=== PATIENT | female | born 1995 | race Caucasian/White ===

== ENCOUNTER 2018-11-11 18:30 | Outpatient (CLI) | payer BC, OTHER, SELFPAY ==
[2018-11-11 18:19] VITALS: BMI 33.8
[2018-11-11 19:31] VITALS: BMI 34.0
--- NOTE | 2018-11-13 07:22 | OB.TRI.NOTE ---
History of Present Illness Date of Service: 11/11/18 Was patient seen by the physician?: No Reason For Visit: INCREASED BLOOD PRESSURE Date of Service: 11/11/18 Final HENRIQUE: 02/18/19 Gestational age: 26 Weeks and 1 Days Allergies doxycycline Allergy (Verified 11/11/18 20:45) Swelling Sulfa (Sulfonamide Antibiotics) Allergy (Verified 11/11/18 20:45) Swelling Tetracyclines Allergy (Verified 11/11/18 20:45) Hives NST - FHR Rate Baby A Baseline: 145 Variability:: Moderate Accelerations:: 10 x 10 Decelerations:: None NST Reactive:: Yes, Appropriate for gestational age FHR Category:: Category I Uterine Activity:: no ctx Impression/Plan 23yo @ 25.6 wks- was sent to ER for calf pain to r/o DVT, elevated BP 1) BPs normal on L&D unit 2) dc patient to ER for DVT work up
== END 2018-11-11 20:33 | disposition home or self-care (01) ==
LOC: WPOUT 19:13 → WP 19:14
PROVIDERS: Referring Provider Obstetrics & Gynecology; Visit Provider Obstetrics & Gynecology
DX: O26.892 Other specified pregnancy related conditions, second trimester (principal); R03.0 Elevated blood-pressure reading, without diagnosis of hypertension; M79.669 Pain in unspecified lower leg; Z3A.25 25 weeks gestation of pregnancy
CPT/HCPCS: 59025; 59050; 99218; G0378

== ENCOUNTER 2018-11-11 20:44 | Emergency (ER) | payer BC, OTHER, SELFPAY ==
[2018-11-11 19:31] VITALS: BMI 34.0
[2018-11-11 20:45] VITALS: BP 131/71; PULSE 95; RESP 16; TEMP 36.3; O2SAT 96; BMI 33.5
--- NOTE | 2018-11-11 21:08 | US_ITS ---
STUDY: VENOUS DOPPLER ULTRASOUND - LEFT LOWER EXTREMITY REASON FOR EXAM: Female, 23 years old. Left leg pain TECHNIQUE: Ultrasound evaluation of the deep vein system to include cason-scale imaging and compression was performed. Cason-scale imaging and Doppler sonographic evaluation, including duplex spectral analysis and qualitative color flow sonography, was performed. COMPARISON: None. FINDINGS: No deep venous thrombosis is identified. All visualized veins demonstrate normal compressibility, augmentation and/or color flow. US/Venous Duplex Imag/Limited/Uni IMPRESSION: No DVT is identified. Electronically Signed: Delroy Ho MD at 21:49 EDT Tel , Service support ,
--- NOTE | 2018-11-11 21:45 | ED.DCSUM_ITS ---
- ER Visit Summary Date of Service: 11/11/18 Chief Complaint: Left leg pain History of Present Illness: The patient is a [address] Fuentes. She is a G1, P0 at 26 weeks of . She reports that she has a history of factor V Leiden disorder. States that last night she had a leg cramp while she was sleeping. The pain has not resolved. She describes as an aching pain that is 2 out of 10 [address] she [address]. She is pain-free at rest. She denies any paresthesias. No recent injury. No fall, MVA, or change in activity. Patient denies any vaginal bleeding or discharge. She has normal movement. She denies any chest pain or shortness of breath. Her review of systems is negative. Physical Examination: Vitals: Stable. Afebrile. General: Well-nourished and well-developed. Head: Normocephalic atraumatic. Neck: Supple, no lymphadenopathy. No JVD. Nontender. Cardiovascular: Regular rate and rhythm. No murmurs. Respiratory: No respiratory distress. Clear to auscultation bilaterally. Abdominal: Soft, nontender, nondistended, normal bowel sounds. No guarding, rebound, or peritoneal signs. Gravid uterus. Back: Nontender. Extremities: Mild left calf tenderness to palpation, no edema. 2+ dorsalis pedis pulse bilaterally. Skin: Normal color, no rash. Neurologic: Alert and oriented ?3. Cranial nerves II through XII are intact. Normal strength and sensation. Psych: Normal affect. Test Results: Left lower extremity Doppler was negative. heart tones 144. Emergency Department Course and Treatment: Patient refused pain medications. She is resting comfortably. Treatment Plan: Patient will be discharged instructions to push fluids. Use Tylenol for pain. Follow-up Dr. Fuentes as previously scheduled. Return to the emergency department for any worsening symptoms. Disposition: To home in improved and stable condition. Impression: 1. Left calf pain. 2. Third trimester . This note was generated with [employer] software. It may contain incorrect words, spelling, and punctuation that were not noted in review of the chart prior to signing ED Disposition - Plan for ED Patient: Disposition: Home or Assisted Living Instructions: Muscle Spasm Referrals: Princess Irving MD [STAFF PHYSICIAN] - Keep Tip appointment
[2018-11-11 21:58] VITALS: BP 128/60; PULSE 78; RESP 18; O2SAT 96
== END 2018-11-11 21:58 | disposition home or self-care (01) ==
PROVIDERS: Emergency Provider Emergency Medicine
DX: O26.892 Other specified pregnancy related conditions, second trimester (principal); M79.662 Pain in left lower leg; O99.112 Other diseases of the blood and blood-forming organs and certain disorders involving the immune mechanism complicating pregnancy, second trimester; D68.51 Activated protein C resistance; O99.282 Endocrine, nutritional and metabolic diseases complicating pregnancy, second trimester; E03.9 Hypothyroidism, unspecified; Z3A.26 26 weeks gestation of pregnancy; Z79.899 Other long term (current) drug therapy
CPT/HCPCS: 93971; 99282

== ENCOUNTER 2019-02-25 06:55 | Inpatient (IN) | payer BC, OTHER, SELFPAY ==
[2019-02-25 07:25] VITALS: BMI 39.1
[2019-02-25] MEDS: Lactated Ringers 1,000 ML 50 ML IV (07:40)
[2019-02-25 08:03] LABS: Absolute Lymphocyte Count 1.81 X10^3/uL (0.83-4.51); Absolute Neutrophil Count 6.8 X10^3/uL (2.0-7.7); Basophil# 0.01 X10^3/uL; Basophil% 0.1 % (0-1); Eosinophil# 0.14 X10^3/uL; Eosinophils% 1.5 % (0-5); Hematocrit 33.3 % (37-47); Hemoglobin 10.7 g/dL (12.0-15.0); Lymphocyte # 1.81 X10^3/ul (4.0); Lymphocyte % 19.3 % (19-41); Mean Corp Hgb Conc 32.1 g/dL (32-36); Mean Corpuscular Hgb 26.6 pg (27.0-32.0); Mean Corpuscular Volume 82.6 fL (81-99); Mean Platelet Vol. 11.7 fl (6.2-12.0); Monocyte# 0.59 X10^3/uL; Monocyte% 6.3 % (0-10); NRBC Flagged by Analyzer 0 % (0-5); Neutrophil # 6.78 X10^3/uL (2.7-7.7); Neutrophil % 72.4 % (47-70); Platelet Count 144 K/mm3 (150-450); RBC Distribution Width CV 13.6 % (11.6-14.6); RBC Distribution Width SD 40.4 fl (35.1-43.9); Red Blood Count 4.03 M/mm3 (4.2-5.4); White Blood Count 9.4 K/mm3 (4.4-11.0)
--- NOTE | 2019-02-25 08:25 | HP.PCM_ITS ---
History Date of Admission: 02/25/19 Final HENRIQUE: 02/18/19 Final HENRIQUE Source: US <20 weeks Gestational age: 41 Weeks and 0 Days History of this : This is a 23 year-old, , at 41 weeks gestational age. Patient here for induction of labor due to post EDC. Patient reports occasional mild contractions. Denies any vaginal bleeding, leaking fluid. Allergies doxycycline Allergy (Verified 11/11/18 20:45) Swelling minocycline Allergy (Verified 02/25/19 07:29) Upset Stomach Sulfa (Sulfonamide Antibiotics) Allergy (Verified 11/11/18 20:45) Swelling sulfamethoxazole [From Bactrim] Allergy (Verified 02/25/19 07:26) Hives Tetracyclines Allergy (Verified 11/11/18 20:45) Hives trimethoprim [From Bactrim] Allergy (Verified 02/25/19 07:26) Hives Home Medications: Home Medications Levothyroxine [Synthroid] 50 mcg PO DAILY 11/11/18 Vits [Prenatabs FA] 1 tab PO DAILY 11/11/18 Biotin 2,500 mcg PO DAILY 02/25/19 Fluticasone 0.05% [Flonase Nasal [place]] 50 mcg NASAL PRN PRN 02/25/19 Loratadine [Claritin] 10 mg PO DAILY PRN 02/25/19 Ondansetron HCl [Zofran] 4 mg PO PRN PRN 02/25/19 Vitamin D3 25 mcg PO DAILY 02/25/19 Smoking Status: Never smoker Alcohol: None Number of Fetus(es): 1 NST - FHR Rate Baby A Baseline: 150 Variability:: Moderate Accelerations:: 15 x 15 Decelerations:: None NST Reactive:: Yes FHR Category:: Category I Uterine Activity:: irregular History Past Pregnancies: Past Pregnancies Delivery Date Name GA/ Weeks Outcome Route Wt Sex Labor Length Anesthesia Delivery Location Provider FOB Labs: O+, HEPB NEG, RUB imm, GBS NEG, syphilis neg Expected Infant Delivery Method: Spontaneous Vaginal Physical Exam General: Alert, Oriented x3 Abdomen: Soft, Non Tender, Gravid Neurological: Cranial nerves II-XII grossly intact [employer]: Normal external genitalia Estimated gestational size: Appropriate for gestational size Presentation: Cephalic Cervix Dilation (cm): 4 Station: -3 Effacement (%): 60 Assessment/Plan This is a 23 year-old, , at 41 weeks gestational age here for IOL 1) admit to L&D 2) Monitor FHR/TOCO 3) pitocin 4) epidural if requested for pain mgmt 5) anticipate
[2019-02-25] MEDS: Oxytocin 30 units/NS 500 ml 30 UNITS/500 ML IV.SOLN IV (08:32)
--- NOTE | 2019-02-25 11:46 | PCM.PN.BLA ---
Progress Note Pt seen at bedside, doing well. AROM performed- large amount of clear fluid. IUPC placed. Continue Pitocin. pt rating contractions as very mild.
[2019-02-25] MEDS: Amnioinfusion- 0.9% NS 1,000 ML IV.SOLN. INTRA-UTER (12:47)
[2019-02-25] MEDS: Lactated Ringers 500 ML 999 ML IV (12:59)
[2019-02-25] MEDS: fentaNYL-bupivacaine (epidural) 100 ML BAG EPIDURAL ×3 (14:10→22:48)
--- NOTE | 2019-02-25 17:03 | PCM.PN.BLA ---
Progress Note pt seen at bedside, resting comfortably with epidural in place. VE: 5-6/70/-2. Continue pitocin at this time. FHR reviewed.
[2019-02-25] MEDS: Lactated Ringers 1,000 ML 200 ML IV ×2 (17:13→20:41)
[2019-02-25] MEDS: 0.9% Normal Saline 1,000 ML 100 ML IV (20:09)
[2019-02-25] MEDS: Fluticasone 0.05% 1 SPRAY NASAL.SRY NASAL (21:56)
[2019-02-26] VITALS (26 sets, daily range): BP systolic 118–145; BP diastolic 46–83; PULSE 92–117; RESP 16–20; TEMP 36.2–37.8; O2SAT 96–100
[2019-02-26] MEDS: Lactated Ringers 1,000 ML 200 ML IV (01:23)
[2019-02-26] MEDS: fentaNYL-bupivacaine (epidural) 100 ML BAG EPIDURAL (03:22)
[2019-02-26] MEDS: 0.9% Normal Saline 1,000 ML 100 ML IV (04:58)
[2019-02-26] MEDS: Sodium Citrate/Citric Acid 30 ML UDC PO (05:30)
--- NOTE | 2019-02-26 05:44 | PCM.PN.BLA ---
Progress Note Patient seen at bedside vaginal exam performed approximately 8 cm swelling on the cervix and head with caput appreciated. Head not well applied- caput at +1 but able to disengage head with minimal effort. Patient with arrest of labor. Patient has been 7 to 8 cm since for approximately 10 hours. Initially thought her exam was changed to Anterior lip but RN rechecked and states was not AL and was back to 8cm. findinns were discussed with the patient and her family of primary section. I discussed risks/benefits of primary cs for arrest of labor- including but not limited to bleeding, infection, injury to pelvic structures. pt wishes to proceed.
[2019-02-26] MEDS: Cefazolin 2 GM in 0.9% Normal Saline 100 ML IV (05:47)
--- NOTE | 2019-02-26 06:45 | OP.PCM_ITS ---
Delivery Classification: GERRY Final HENRIQUE: 02/18/19 Gestational age: 41 Weeks and 1 Days manufacturing advisor: Sarah Ye Type of Anesthesia:: Epidural Implants Used: none Date of Procedure: 02/26/19 Pre-Operative Diagnosis: Term gestation, Arrest of dilation Post-Operative Diagnosis: same, live male Indications: Arrest of dilation Indications for : Failure to Progress Description of Procedure: After informed consent was obtained the patient was taken the operating room. She was then placed in the supine position. She was prepped and draped in the normal sterile fashion. Epidural Anesthesia was found to be adequate. At this time a Pfannenstiel skin incision was made with a knife was carried down to the underlying layer of the fascia. The fascial incision was then extended laterally using curved Chao scissor. Attention was then turned to the superior aspect of the fascial edge was grasped with 2 straight Norma clamps tented up and the rectus muscle dissected off sharply using curved Chao scissor. Attention was then turned to the inferior aspect where again Prescott clamps were placed in the rectus muscles were tented up and the fascia was dissected off sharply using the curved Chao scissor. rRectus muscles were then grasped with allis clamps and scalpel used to in the midline and peritoneum was entered bluntly. Gentle opposing traction was placed. At this time the vesicouterine peritoneum was identified. Scalpel was used to make a uterine incision in a low transverse fashion. The uterus was then entered bluntly gentle opposing traction was placed to extend this incision. Membranes were ruptured clear. 's head was brought to the uterine incision was delivered atraumatically. Cord was clamped and cut was handed to the waiting nursery team. The Placenta was removed from the uterus. The uterus was then removed from the abdominal cavity. The uterus was cleared of all clots and debris using a lap. At this time the uterine incision was reapproximated using #1 Vicryl in a running locked fashion followed by a second imbricating layer. Hemostasis was appreciated. Posterior cul-de-sac was then cleared of all clots and debris. tubes and ovaries appeared normal. Uterus was placed back in the abdominal cavity. Gutters were cleared of all clots and debris. Uterine incision was reevaluated and noted to be of excellent hemostasis. Alesia placed. At this time the peritoneum and muscle were grasped with Kellys reapproximated using #2 Vicryl suture in a running fashion. Alesia placed over muscle. Fascia was then reapproximated using #1 Vicryl in a running fashion. Alesia placed in subcu later. Subcu layer was reapproximated with #2 0 plain gut suture in an interrupted fashion. Subcu layer was closed using 4-0 vicryl on a John needle in a subcu fashion. Dry sterile dressing was applied. Instrument lap needle count correct ?2. Anticipated normal postoperative course. Amniotic Membrane Rupture Type: Artificial Amniotic Fluid Description: Clear Placenta Disposition: [facility] Drain: Velazquez to straight drain Fluids Replaced: 1500 Cord Entanglement: - - a Cord Vessel Description: 3 Vessels Esitmated Blood Loss (ml): 800 Infant Gender: Male (1 minute): 8 (5 minute): 9 Delayed cord clamping: Yes Antibiotic Given: Ancef 2 grams IV x1, Zithromax 500 mg/5 mL X1 Pt instructed on risks of surgery: Bleeding, Anesthesia Risks, Infection, Injury to surrounding structure(s) including bowel and bladder Complications: None - Admit VTE Documentation VTE Present on Admission: Yes VTE Mechan Device Prophylaxis: SCD's VTE Pharm Prophylaxis ordered?: Yes
[2019-02-26] MEDS: Lactated Ringers 1,000 ML 100 ML IV (07:00)
[2019-02-26] MEDS: Oxytocin 30 units/NS 500 ml 30 UNITS/500 ML IV.SOLN 167 UNITS IV (07:25)
--- NOTE | 2019-02-26 08:02 | NURSING ---
01/22/2028 is the use by date on the second matthew. viki bagley aware of this nursing note.
--- NOTE | 2019-02-26 08:31 | NURSING ---
Uterus right of midline and somewhat boggy. Fundal massage and pad changed for moderate lochia. pad saved for quantitative measure and charge nurse Patt informed. Hemorrhage cart requested to room.
[2019-02-26] MEDS: Levothyroxine 50 MCG Tablet PO (08:53)
--- NOTE | 2019-02-26 11:03 | NURSING ---
Hemorrhage cart in room at 0839. Pad wts as follows: 160gm at 08:40, 108gm at 09:45 19gm at 1030. Uterus has remained firm after initial massage. No further interventions needed at this time.
[2019-02-26] MEDS: Ketorolac 30 MG/ML Syringe IV ×3 (11:59→23:56)
[2019-02-26] MEDS: 0.9% Saline Lock 10 ML Syringe IV ×3 (12:01→23:57)
--- NOTE | 2019-02-26 13:39 | PCM.PN.BLA ---
Progress Note RN reports abdominal distension and firmness over right side of abdomen. At bedside to check pt. She feels well. Pain is well controlled. She denies lightheadedness, dizziness, nausea, vomiting. Gen- NAD, well appearing Abd- Soft, +soft distension, FF@U, ATTP Incision- Dressing c/d/i - Abd exam benign at this time - Pt doing well - Continue to monitor STROKE Vital Signs/Narrative: Vital Signs Temp Pulse Resp BP BP Pulse Ox 02/26/19 12:35 18 96 02/26/19 11:53 98.0 F 114 H 18 133/76 H 97 02/26/19 11:30 18 96 02/26/19 10:40 108 H 18 123/61 H 96 02/26/19 10:30 18 97 02/26/19 09:41 16 130/71 H 97
[2019-02-26] MEDS: Acetaminophen 500 MG Tablet 1000 MG PO (17:04)
--- NOTE | 2019-02-26 17:10 | NURSING ---
Temporal temperature 100.4 F with oral retake at 99.6 F. Pt given tylenol to help with pain and increased temperature.
--- NOTE | 2019-02-26 20:34 | NURSING ---
Pt. up to restroom to try and urinate for first time since kraft was discontinued. A moderate sized clot, approx the size of a hard boiled egg noted in pt's mike-care.
[2019-02-27 00:03] VITALS: BP 137/53; PULSE 109; RESP 18; TEMP 37.2; O2SAT 97
[2019-02-27 02:34] VITALS: PULSE 113; RESP 16; O2SAT 97
[2019-02-27 04:20] VITALS: BP 101/51; PULSE 101; RESP 16; TEMP 37.2; O2SAT 100
[2019-02-27] MEDS: Ketorolac 30 MG/ML Syringe IV ×2 (06:13→11:54)
[2019-02-27] MEDS: 0.9% Saline Lock 10 ML Syringe IV ×2 (06:13→11:53)
[2019-02-27] MEDS: Levothyroxine 50 MCG Tablet PO (06:13)
[2019-02-27 06:17] VITALS: PULSE 116; RESP 16; O2SAT 97
[2019-02-27 06:27] LABS: Hematocrit 24.7 % (37-47); Mean Corp Hgb Conc 32.4 g/dL (32-36); Mean Corpuscular Hgb 26.8 pg (27.0-32.0); Mean Corpuscular Volume 82.6 fL (81-99); Platelet Count 127 K/mm3 (150-450); RBC Distribution Width CV 14.1 % (11.6-14.6); RBC Distribution Width SD 41.7 fl (35.1-43.9); Red Blood Count 2.99 M/mm3 (4.2-5.4); White Blood Count 12.8 K/mm3 (4.4-11.0)
--- NOTE | 2019-02-27 10:02 | PCM.PN.OB ---
Subjective: Doing well. She is up out of bed and ambulating without any lightheadedness or dizziness. She denies chest pain, shortness of breath, palpitations, leg pain. She is ambulating and voiding without difficulty. She is tolerating a diet without nausea or vomiting. She is breast-feeding. Lochia is normal. Pain is well controlled. - Physical Exam Vitals/I&O's: Vital Signs Temp Pulse Resp BP Pulse Ox 99.0 F 116 H 16 101/51 L 97 02/27/19 04:20 02/27/19 06:17 02/27/19 06:17 02/27/19 04:20 02/27/19 06:17 Oxygen Delivery Method Room Air Weight: 242 lb 8.136 oz Body Mass Index (BMI) 39.1 Intake and Output for Last 24 Hours 02/25/19 02/26/19 02/27/19 23:59 23:59 23:59 Intake Total 6477.57 / 6477.57 5536.38 / 5536.38 Output Total 4200 / 4200 4850 / 4850 1100 / 1100 Balance 2277.57 / 2277.57 686.38 / 686.38 -1100 / -1100 General: Alert, No apparent distress HEENT: Atraumatic Abdomen: Soft, - - ATTP, FF@U, dressing c/d/i Extremities: No Calf Tenderness, Edema Skin: No rashes Neurological: Neuro grossly intact Psych/Mental Status: Normal Affect, Appropriate Laboratory Results 02/27/19 06:12: WBC 12.8 H, RBC 2.99 L, Hgb 8.0 L, Hct 24.7 L, MCV 82.6, MCH 26.8 L, MCHC 32.4, RDW Std Deviation 41.7, RDW Coeff of Barbara 14.1, Plt Count 127 L, MPV 11.0 Current Medications Acetaminophen (Tylenol) 1,000 mg PO Q8H PRN PRN Reason: Pain Score 1-3/10 Last Admin: 02/26/19 17:04 Dose: 1,000 mg Documented by: Bisacodyl (Dulcolax) 10 mg RECTAL UD PRN PRN Reason: If no BM Fluticasone Propionate (Flonase Nasal [place]) 1 spray NASAL PRN PRN PRN Reason: NASAL CONGESTION Hydrocortisone (Hytone) 1 applic TOPICAL TID PRN PRN; Protocol PRN Reason: Discomfort Lactated Ringer's () 1,000 mls @ 100 mls/hr IV .Q10H [facility] Last Admin: 02/27/19 04:12 Dose: Not Given Documented by: Naloxone HCl 4 mg/ Dextrose 504 mls @ 0 mls/hr IV .Q0M PRN; Protocol PRN Reason: Respiratory depression Naloxone HCl 4 mg/ Dextrose 504 mls @ 0 mls/hr IV .Q0M PRN; Protocol PRN Reason: To maintain Resp. rate >10 Ibuprofen (Motrin) 600 mg PO Q6H PRN PRN PRN Reason: Pain Score 1-3/10 Ketorolac Tromethamine (Toradol) 30 mg IV Q6 [facility] Stop: 02/28/19 06:01 Last Admin: 02/27/19 06:13 Dose: 30 mg Documented by: Levothyroxine Sodium (Synthroid) 50 mcg PO DAILY@0600 [facility] Last Admin: 02/27/19 06:13 Dose: 50 mcg Documented by: Loratadine (Claritin) 10 mg PO DAILY PRN PRN Reason: ALLERGIES Methylergonovine Maleate (Methergine) 0.2 mg IM X1 PRN PRN Reason: Uterine Atony Naloxone HCl (Narcan) 0.02 mg IV Q1M PRN PRN Reason: RR <10 and pt unresponsive Ondansetron HCl (Zofran) 4 mg IV Q4H PRN PRN PRN Reason: Nausea Oxycodone HCl (Oxyir) 5 - 10 mg PO Q4H PRN PRN PRN Reason: Pain Score 4-10/10 Prochlorperazine Edisylate (Compazine Iv) 10 mg IV Q6H PRN PRN PRN Reason: NAUSEA Senna/Docusate Sodium (Senokot-S, [place]er[place]-Colace) 0 tablet PO DAILY PRN PRN Reason: Constipation Simethicone (Mylicon) 80 mg PO PCHS PRN PRN Reason: Indigestion/stomach pain Sodium Chloride () 5 - 15 ml IV UD PRN PRN Reason: SALINE FLUSH Last Admin: 02/27/19 06:13 Dose: 10 ml Documented by: Medical Necessity - Tobacco Use Smoking Status: Never smoker Assessment/Plan POD#1 s/p PLTCS - Pt doing well. Hgb 8 and plt's decreased. Pt is not symptomatic from anemia. HR elevated likely from acute blood loss anemia. Will recheck CBC tomorrow morning. Discussed starting iron at home - - Dispo: Continue care. Possible d/c home tomorrow
[2019-02-27 14:25] VITALS: BP 128/83; PULSE 116; TEMP 36.6; O2SAT 98
[2019-02-27] MEDS: Acetaminophen 500 MG Tablet 1000 MG PO (16:05)
[2019-02-27 20:00] VITALS: BP 127/77; PULSE 116; RESP 16; TEMP 36.6
[2019-02-27] MEDS: Ibuprofen 600 MG Tablet PO (20:05)
[2019-02-28 02:00] VITALS: BP 123/85; PULSE 116; RESP 16; TEMP 36.9
[2019-02-28] MEDS: Senna/Docusate Sodium 1 Tablet PO (02:00)
[2019-02-28] MEDS: Ibuprofen 600 MG Tablet PO ×2 (02:06→09:14)
[2019-02-28] MEDS: Acetaminophen 500 MG Tablet 1000 MG PO (03:26)
[2019-02-28 05:33] LABS: Hematocrit 25.4 % (37-47); Mean Corp Hgb Conc 31.5 g/dL (32-36); Mean Corpuscular Hgb 26.5 pg (27.0-32.0); Mean Corpuscular Volume 84.1 fL (81-99); Mean Platelet Vol. 10.7 fl (6.2-12.0); Platelet Count 146 K/mm3 (150-450); RBC Distribution Width CV 14.3 % (11.6-14.6); RBC Distribution Width SD 43.2 fl (35.1-43.9); Red Blood Count 3.02 M/mm3 (4.2-5.4); White Blood Count 9.9 K/mm3 (4.4-11.0)
[2019-02-28 08:15] VITALS: BP 130/76; PULSE 103; RESP 16; TEMP 36.4; O2SAT 98
[2019-02-28] MEDS: Levothyroxine 50 MCG Tablet PO (08:28)
--- NOTE | 2019-02-28 10:15 | PCM.PN.OB ---
Subjective: Patient doing well. Pain is well controlled. She is ambulating and voiding without difficulty. Tolerating a diet without nausea or vomiting. She is breast-feeding without any complaints. She denies lightheadedness, dizziness, headache, chest pain, shortness of breath, leg pain. Lochia normal. Desires to go home today. - Physical Exam Vitals/I&O's: Vital Signs Temp Pulse Resp BP Pulse Ox 98.4 F 116 H 16 123/85 H 98 02/28/19 02:00 02/28/19 02:00 02/28/19 02:00 02/28/19 02:00 02/27/19 14:25 Oxygen Delivery Method Room Air Weight: 242 lb 8.136 oz Body Mass Index (BMI) 39.1 Intake and Output for Last 24 Hours 02/26/19 02/27/19 02/28/19 23:59 23:59 23:59 Intake Total 5536.38 / 5536.38 Output Total 4850 / 4850 1100 / 1100 Balance 686.38 / 686.38 -1100 / -1100 General: Alert, No apparent distress HEENT: Atraumatic Abdomen: Soft, - - ATTP, FF@U-1, dressing c/d/i Extremities: No Calf Tenderness, Edema Skin: No rashes Neurological: Neuro grossly intact Psych/Mental Status: Normal Affect, Appropriate Laboratory Results 02/28/19 05:25: WBC 9.9, RBC 3.02 L, Hgb 8.0 L, Hct 25.4 L, MCV 84.1, MCH 26.5 L, MCHC 31.5 L, RDW Std Deviation 43.2, RDW Coeff of Barbara 14.3, Plt Count 146 L, MPV 10.7 Current Medications Acetaminophen (Tylenol) 1,000 mg PO Q8H PRN PRN Reason: Pain Score 1-3/10 Last Admin: 02/28/19 03:26 Dose: 1,000 mg Documented by: Bisacodyl (Dulcolax) 10 mg RECTAL UD PRN PRN Reason: If no BM Fluticasone Propionate (Flonase Nasal [place]) 1 spray NASAL PRN PRN PRN Reason: NASAL CONGESTION Hydrocortisone (Hytone) 1 applic TOPICAL TID PRN PRN; Protocol PRN Reason: Discomfort Lactated Ringer's () 1,000 mls @ 100 mls/hr IV .Q10H [facility] Last Admin: 02/27/19 21:50 Dose: Not Given Documented by: Naloxone HCl 4 mg/ Dextrose 504 mls @ 0 mls/hr IV .Q0M PRN; Protocol PRN Reason: Respiratory depression Naloxone HCl 4 mg/ Dextrose 504 mls @ 0 mls/hr IV .Q0M PRN; Protocol PRN Reason: To maintain Resp. rate >10 Ibuprofen (Motrin) 600 mg PO Q6H PRN PRN PRN Reason: Pain Score 1-3/10 Last Admin: 02/28/19 09:14 Dose: 600 mg Documented by: Levothyroxine Sodium (Synthroid) 50 mcg PO DAILY@0600 [facility] Last Admin: 02/28/19 08:28 Dose: 50 mcg Documented by: Loratadine (Claritin) 10 mg PO DAILY PRN PRN Reason: ALLERGIES Methylergonovine Maleate (Methergine) 0.2 mg IM X1 PRN PRN Reason: Uterine Atony Naloxone HCl (Narcan) 0.02 mg IV Q1M PRN PRN Reason: RR <10 and pt unresponsive Ondansetron HCl (Zofran) 4 mg IV Q4H PRN PRN PRN Reason: Nausea Oxycodone HCl (Oxyir) 5 - 10 mg PO Q4H PRN PRN PRN Reason: Pain Score 4-10/10 Prochlorperazine Edisylate (Compazine Iv) 10 mg IV Q6H PRN PRN PRN Reason: NAUSEA Senna/Docusate Sodium (Senokot-S, Neeru-Colace) 0 tablet PO DAILY PRN PRN Reason: Constipation Last Admin: 02/28/19 02:00 Dose: 2 tablet Documented by: Simethicone (Mylicon) 80 mg PO PCHS PRN PRN Reason: Indigestion/stomach pain Sodium Chloride () 5 - 15 ml IV UD PRN PRN Reason: SALINE FLUSH Last Admin: 02/27/19 11:53 Dose: 10 ml Documented by: Medical Necessity - Tobacco Use Smoking Status: Never smoker Assessment/Plan POD#2 s/p PLTCS - Doing well - Plt's trending up and Hgb stable. Tachycardia likely secondary to anemia. No evidence of DVT on exam and SpO2 97-100 on RA. No CP, SOB, palpitations. Reviewed starting iron - - Dispo: She requests to go home today. D/c to home. Reviewed discharge instructions
--- NOTE | 2019-02-28 10:21 | DCINST_ITS ---
Discharge Diet: No Restrictions Discharge Activity: May Not Drive, May Shower May shower in (days): 0 May resume sexual activity in: 6 weeks Weight Bearing Status: Weight bearing as tolerated Lifting Restrictions: No lifting greater than 15-20 pounds Call your doctor if your incision/area has: Sudden Increased Bleeding, Increased Pain/ Swelling, Increased Redness, Foul Smelling Discharge, Swelling at the inci jeremias site Call your doctor if you observe: Fever of 101 or Higher, Inability to urinate, Inability to have a bowel movement, Using more than one pad per hour, Shortness of breath, Dizziness, Fainting spells, Chest pain, Increased palpitations (irregular heartbeat), Calf discomfort, Uncontrolled pain Suture Line Care: Avoid Pulling/Pushing, Avoid Pinching/Bending Cleanse incision/area with: Soap & Water Instructions: After a Additional Instructions: If you experience any of the following, contact your healthcare provider. * Bleeding that soaks a pad every hour for 2 hours * Fever 100.4 or higher * Unrelieved incision or abdominal pain * Swelling, redness, discharge or bleeding from your incision or episiotomy site * Your incision begins to separate * Problems urinating (including inability to urinate or burning while urinating). * Visual changes * Severe headache * Flu-like symptoms * Pain or redness in one of both of your breasts * Pain, warmth, tenderness or swelling in your legs, especially the calf area * Frequent nausea and vomiting * Symptoms of depression or anxiety If you experience any of the following, call 911 or go to the nearest Emergency Room. * Chest pain * Problems breathing * Seizure activity * Partial or complete paralysis of a body part, slurred speech, weakness or drooping of the face, or a sudden inability to walk or hold your balance Allergies/Adverse Reactions: Allergies doxycycline Allergy (Verified 11/11/18 20:45) Swelling minocycline Allergy (Verified 02/25/19 07:29) Upset Stomach Sulfa (Sulfonamide Antibiotics) Allergy (Verified 11/11/18 20:45) Swelling sulfamethoxazole [From Bactrim] Allergy (Verified 02/25/19 07:26) Hives Tetracyclines Allergy (Verified 11/11/18 20:45) Hives trimethoprim [From Bactrim] Allergy (Verified 02/25/19 07:26) Hives Medications to take at Discharge Levothyroxine [Synthroid] 50 mcg PO DAILY 11/11/18 Vits [Prenatabs FA] 1 tab PO DAILY 11/11/18 Biotin 2,500 mcg PO DAILY 02/25/19 Fluticasone 0.05% [Flonase Nasal [place]] 50 mcg NASAL PRN PRN 02/25/19 Loratadine [Claritin] 10 mg PO DAILY PRN 02/25/19 Ondansetron HCl [Zofran] 4 mg PO PRN PRN 02/25/19 Vitamin D3 25 mcg PO DAILY 02/25/19 Docusate Sodium [Colace] 100 mg PO BID #60 cap 02/28/19 Ferrous Sulfate 325 mg PO QODAY #30 tab 02/28/19 Oxycodone HCl/Acetaminophen [Percocet 5/325] 1 tab PO Q6H PRN PRN 7 Days #20 tab 02/28/19 The following prescriptions were given: Docusate Sodium [Colace] 100 mg PO BID #60 cap Prescription Printed Ferrous Sulfate 325 mg PO QODAY #30 tab Prescription Printed Oxycodone HCl/Acetaminophen [Percocet 5/325] 1 tab PO Q6H PRN PRN 7 Days #20 tab PRN Reason: Pain Score 6-10/10 Prescription Printed Follow-Up: Call to make an appointment with your doctor for an incision check in 1-2 weeks. You will also need a 6 week post- follow up appointment. Test results from this visit will be discussed in further detail at your follow- up appointment, if applicable. When: 1 week for incision check and 6 weeks for visit Primary Care Physician: Anastacio Perkins MD [Primary Care Provider] -
[2019-02-28 12:10] VITALS: BP 135/78; PULSE 110; RESP 16; TEMP 36.5
--- NOTE | 2019-03-04 07:55 | PCM.DC.SUM ---
Discharge Date and Diagnosis Date of Admission: 02/25/19 Date of Discharge: 02/28/19 Hospital Course and Treatment Consultations 02/25/19 07:11 Consult: Anesthesia Routine Comment: Reason For Exam: Labor Operations: - - PLTCS Summary of Care Provided: The patient is a 23 year old F who presented for an induction of labor at 41 weeks gestation given postdates. She had a primary section for failure to progress in labor. See operative note for details of section. She did well postoperatively. She was ambulating well, voiding well, pain was well controlled, and she was tolerated a regular diet prior to discharge. She was discharged home in good condition with follow-up in the office. - Physical Exam Vitals/I&O's: Vital Signs Temp Pulse Resp BP Pulse Ox 97.7 F L 110 H 16 135/78 H 98 02/28/19 12:10 02/28/19 12:10 02/28/19 12:10 02/28/19 12:10 02/28/19 08:15 Oxygen Delivery Method Room Air Weight: 242 lb 8.136 oz Body Mass Index (BMI) 39.1 Discharge Diet: No Restrictions Discharge Activity: May Not Drive, May Shower May shower in (days): 0 May resume sexual activity in: 6 weeks Weight Bearing Status: Weight bearing as tolerated Call your doctor if your incision/area has: Sudden Increased Bleeding, Increased Pain/ Swelling, Increased Redness, Foul Smelling Discharge, Swelling at the incision site Call your doctor if you observe: Fever of 101 or Higher, Inability to urinate, Inability to have a bowel movement, Using more than one pad per hour, Shortness of breath, Dizziness, Fainting spells, Chest pain, Increased palpitations (irregular heartbeat), Calf discomfort, Uncontrolled pain Suture Line Care: Avoid Pulling/Pushing, Avoid Pinching/Bending Cleanse incision/area with: Soap & Water Home Medications: Medications to take at Discharge Levothyroxine [Synthroid] 50 mcg PO DAILY 11/11/18 Vits [Prenatabs FA] 1 tab PO DAILY 11/11/18 Biotin 2,500 mcg PO DAILY 02/25/19 Fluticasone 0.05% [Flonase Nasal [place]] 50 mcg NASAL PRN PRN 02/25/19 Loratadine [Claritin] 10 mg PO DAILY PRN 02/25/19 Ondansetron HCl [Zofran] 4 mg PO PRN PRN 02/25/19 Vitamin D3 25 mcg PO DAILY 02/25/19 Docusate Sodium [Colace] 100 mg PO BID #60 cap 02/28/19 Ferrous Sulfate 325 mg PO QODAY #30 tab 02/28/19 Oxycodone HCl/Acetaminophen [Percocet 5/325] 1 tab PO Q6H PRN PRN 7 Days #20 tab 02/28/19 Following Prescrptions Were Given to Patient: Docusate Sodium [Colace] 100 mg PO BID #60 cap Prescription Printed Ferrous Sulfate 325 mg PO QODAY #30 tab Prescription Printed Oxycodone HCl/Acetaminophen [Percocet 5/325] 1 tab PO Q6H PRN PRN 7 Days #20 tab PRN Reason: Pain Score 6-10/10 Prescription Printed Primary Care Physician: Anastacio Perkins MD [Primary Care Provider] - When: 1 week for incision check and 6 weeks for visit Patient Instructions: After a Medical Necessity - Tobacco Use Smoking Status: Never smoker Meaningful Use Info Meaningful Use Diagnoses (Choose all that apply): None applicable
== END 2019-02-28 13:25 | disposition home or self-care (01) | DRG 788 ==
PROVIDERS: Obstetrics & Gynecology; Admitting Provider Obstetrics & Gynecology; Family Provider Family Medicine; PCP Family Medicine; Referring Provider Obstetrics & Gynecology; Visit Provider Obstetrics & Gynecology
DX: O62.0 Primary inadequate contractions (principal); Z37.0 Single live birth; Z3A.41 41 weeks gestation of pregnancy; O48.0 Post-term pregnancy
CPT/HCPCS: 59025; 59050; 85025; 85027; 86850; 86900; 86901; 99218; J7030; J7120; A4216; G0378; J2405